=== PATIENT | female | born 1970 | race Caucasian/White ===

== ENCOUNTER 2025-04-30 04:28 | Inpatient (IN) | payer BC, SELFPAY ==
[2025-04-30] VITALS (34 sets, daily range): BP systolic 92–157; BP diastolic 64–93; PULSE 58–87; RESP 13–23; TEMP 36.3–36.6; O2SAT 93–100; BMI 30.9; BMI 32.5
[2025-04-30] MEDS: heparin drip 25,000 UNIT/500 ML PREMIX 20 UNIT IV (04:30)
--- NOTE | 2025-04-30 04:48 | ECG_ITS ---
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 Measurements Intervals [place] Rate: 73 P: 41 IA: 138 QRS: 21 QRSD: 82 T: 52 QT: 398 QTc: 441 Interpretive Statements SINUS RHYTHM LOW QRS VOLTAGE IN PRECORDIAL LEADS [QRS DEFLECTION < 1.0 mV IN CHEST LEADS] NONSPECIFIC T-WAVE ABNORMALITY No previous ECG available for comparison Electronically Signed On 04-30-2025 14:06:36 CDT by Shayan Raines M.D. [email or web address]
--- NOTE | 2025-04-30 04:53 | XRR_ITS ---
PROCEDURE INFORMATION: Exam: XR Chest Exam date and time: 04/30/2025 5:10 AM Age: 54 years old Clinical indication: Pain; Chest pressure and left-sided; Additional info: Chest pain TECHNIQUE: Imaging protocol: Radiologic exam of the chest. Views: 1 view. COMPARISON: No relevant prior studies available. FINDINGS: Lungs: Calcified granuloma within right upper lobe. Negative for consolidation. Pleural spaces: Unremarkable. No pleural effusion. No pneumothorax. Heart/Mediastinum: Unremarkable. No cardiomegaly. Bones/joints: Unremarkable. XR/XR chest 1V portable [id number] IMPRESSION: Negative for acute chest pathology.
[2025-04-30 05:06] LABS: Hematocrit 42.0 % (36-47); Hemoglobin 13.70 g/dL (11.27-16.99); Mean Corpuscular HGB Conc 32.6 g/dL (30-55); Mean Corpuscular Hemoglobin 30.7 pg (27-33); Mean Corpuscular Volume 94.2 fl (85-98); Nucleated Red Blood Cells % 0 %; Platelet Count 273 10^3/cmm (157-399); Red Blood Count 4.46 10^6/uL (3.85-5.65); White Blood Count 14.38 10^3/uL (3.29-11.43)
--- NOTE | 2025-04-30 05:26 | ED_ITS ---
HPI - Chest Pain 2 General: Chief Complaint: Chest Pain Stated Complaint: STEMI Time Seen by Provider: 04/30/25 04:28 History of Present Illness: Adult female with Hx of asthma was well until she awoke at ?01:45 to use the bathroom and soon noted pressure-like chest pain that escalated to 10/10. EMS was activated. En route from [facility] she had ST-segment elevation that progressively decreased, consistent with reperfusion. Episodes of bradycardia to the 20s and hypotension to the 80s/50s occurred; she received a 250 mL IV fluid bolus, atropine, and additional fluids with improvement. No morphine was given because of low BP. Prior to arrival she chewed aspirin and took four nitroglycerin tablets. Pain is now minimal and non-reproducible; denies new SOB beyond baseline asthma but notes mild wheeze. She reports this is her first myocardial infarction. ROS otherwise negative. Physical Exam 2 Const: COMMON NORMALS: no acute distress, patient oriented x3 and alert HENMT: COMMON NORMALS: normocephalic and atraumatic HEAD & SCALP: n ormocephalic and atraumatic Eye: COMMON NORMALS: Equal, round and reactive pupils present, EOMs intact bilaterally and no scleral icterus PUPIL: Yes Equal, round and reactive pupils present Chest: OTHER: Chest pain is not reproducible with palpation or deep inspiration Resp: COMMON NORMALS: normal respiratory effort and No retractions Cardio: COMMON NORMALS: regular rate, regular rhythm and No murmurs present (Cardio) RATE: regular rate RHYTHM: regular rhythm GI: COMMON NORMALS: Normal to inspection, nondistended, normoactive bowel sounds present, Soft to palpation and non-tender PALPATION: Yes Soft to palpation Neuro: COMMON NORMALS: patient oriented x3 SENSORIUM/ORIENTATION: Yes alert Skin: COMMON NORMALS: no rashes or lesions noted GENERAL SKIN EXAM: no rashes or lesions noted Course 2 Vital Signs: Vital signs: Vital Signs Temperature 97.4 F L 04/30/25 04:38 Pulse Rate 73 04/30/25 04:38 Respiratory Rate 23 H 04/30/25 04:38 Blood Pressure 143/80 04/30/25 04:38 Pulse Oximetry 99 04/30/25 04:38 MDM - Chest Pain Medical Decision Making The patient presents with sudden onset severe chest pressure during sleep. Initial EKG at outside facility showed profound ST segment elevation in the inferior leads consistent with myocardial infarction. She received TNKase, nitroglycerin, aspirin, and now pain is 1 of 10 and repeat EKG here at our facility shows the resolved ST segments with no T wave inversions. I spoke with on-call interventional cardiology who recommends admission to the intensive care unit and he will catheterize the patient at 7 AM. Spoke with the hospitalist service who graciously agrees to admit the patient to the ICU to continue this plan of care. Lab Data 04/30/25 05:00 04/30/25 05:00 Laboratory Results WBC 14.38 10^3/uL (3.29-11.43) H 04/30/25 05:00 RBC 4.46 10^6/uL (3.85-5.65) 04/30/25 05:00 Hgb 13.70 g/dL (11.27-16.99) 04/30/25 05:00 Hct 42.0 % (36-47) 04/30/25 05:00 MCV 94.2 fl (85-98) 04/30/25 05:00 MCH 30.7 pg (27-33) 04/30/25 05:00 MCHC 32.6 g/dL (30-55) 04/30/25 05:00 RDW 12.4 % (12.1-15.1) 04/30/25 05:00 Plt Count 273 10^3/cmm (157-399) 04/30/25 05:00 MPV 11.2 fL (7.4-10.4) H 04/30/25 05:00 Neut % (Auto) 82.0 % 04/30/25 05:00 Lymph % (Auto) 9.8 % 04/30/25 05:00 [place] % (Auto) 5.9 % 04/30/25 05:00 Eos % (Auto) 0.9 % 04/30/25 05:00 Baso % (Auto) 0.9 % 04/30/25 05:00 Neut # (Auto) 11.79 10^3/uL (1.8-7.7) H 04/30/25 05:00 Lymph # (Auto) 1.4 10^3/uL (0.8-4.8) 04/30/25 05:00 [place] # (Auto) 0.9 10^3/uL (0.2-0.9) 04/30/25 05:00 Eos # (Auto) 0.1 10^3/uL (0.0-0.8) 04/30/25 05:00 Baso # (Auto) 0.1 10^3/uL (0.0-0.1) 04/30/25 05:00 Nucleated RBC % (auto) 0 % 04/30/25 05:00 Nucleated RBCs # 0.0 /100WBC 04/30/25 05:00 All radiology interpretation(s) finalized by discharge EKG Data EKG 1: Interpretation: Time?441?sinus rhythm, rate of 73, no ST segment elevation or depression, no T wave inversions, QTc = 425 Discharge Plan Discharge Patient Disposition: Admitted As Inpatient Clinical Impression: ST elevation myocardial infarction (STEMI) Condition: Serious Coding Level of Care Code ED Service Desk Specialist for Roberto Boogie
[2025-04-30 05:28] LABS: Alanine Aminotransferase 19 U/L (0-33); Albumin Level 4.2 g/dL (3.5-5.2); Alkaline Phosphatase 146 U/L (35-105); Anion Gap 14.4 (5-19); Aspartate Amino Transferase 19 U/L (0-32); Blood Urea Nitrogen 20 mg/dL (6-20); Calcium 9.1 mg/dL (8.5-10.5); Carbon Dioxide 25 mmol/L (22-29); Chloride 106 mmol/L (98-107); Creatinine Clr Calc Pharmacy 73.0068; Globulin 2.8 g/dL (1.3-4.6); Glucose 129 mg/dL (65-115); Osmolality Calculated 296 mOsm/kg (285-295); Potassium 4.4 mmol/L (3.5-5.1); Sodium 141 mmol/L (136-145); Total Protein 7.0 g/dL (6.6-8.7)
[2025-04-30 05:31] LABS: Troponin(5th) Baseline 152 ng/L (0-10)
--- NOTE | 2025-04-30 06:10 | USCV_ITS ---
Connie Nguyen Age: 54 Gender: F : 1970 Exam Date: 04/30/2025 13:05 Ordering Phys: Juan Shirley MD Technologist: DARYL [place] [facility] [place]: STEMI BP: 130 / 85 HR: 58 Rhythm: Sinus Technical Quality: Adequate MEASUREMENTS (Male / Female) Normal Values 2D ECHO LVOT Diameter 2.1 cm LV Ejection Fraction MOD 4C 52.9 % LV Ejection Fraction MOD 2C 52.2 % LV Ejection Fraction 2C AL 53.6 % LA Diameter 2.9 cm RA Systolic Volume 4C AL 30.6 ml RA Systolic Volume 4C MOD 29.3 ml LA Sys Volume AL 42.2 cm cubed LA Sys Volume Index AL 21.1 cm cubed/m squared Aorta at Sinotubular Diameter 2.7 cm IVC Diameter 1.7 cm M-MODE LA Ao Ratio MM 1.5 AV Cusp Separation MM 1.6 cm DOPPLER AV Peak Velocity 132.0 cm/s LVOT Peak Velocity 82.0 cm/s AV Area Cont Eq vti 2.2 cm squared AV Area Cont Eq pk 2.1 cm squared MV Peak Velocity 84.0 cm/s MV Area PHT 2.4 cm squared Mitral E to A Ratio 0.7 TR Peak Velocity 82.0 cm/s TR Peak Gradient 2.7 mmHg TV Peak E Velocity 72.0 cm/s PV Peak Velocity 85.0 cm/s FINDINGS Left Ventricle Normal LV size with borderline low ejection fraction of 52%. Mild hypokinesis of the mid and apical septal segment. Right Ventricle The right ventricle is normal in size and function. Right Atrium The right atrium is normal in size. Left Atrium The left atrium is normal in size. Mitral Valve No gross abnormalities noted Aortic Valve No gross abnormalities noted Tricuspid Valve No gross abnormalities noted Pulmonic Valve Pulmonic valve not well visualized. Pericardium Normal pericardium without effusion. Aorta Normal ascending aorta dimension. IVC Normal inferior vena cava. CONCLUSIONS Normal LV size with borderline low ejection fraction of 52%. Mild hypokinesis of the mid and apical septal segment. No significant valvular abnormalities Normal chamber sizes. There is no pericardial effusion. There are no intracardiac masses. No similar previous studies are available for comparison Dr Shayan Raines MD [facility] (Electronically Signed) Final Date: 30 April 2025 15:44 S
--- NOTE | 2025-04-30 06:10 | PM.HP ---
Providers/Chief Complaint Admitting Physician: Juan Shirley MD Chief Complaint: STEMI History of Present Illness Connie Nguyen is a 54 year old female who has a past medical history of asthma, current smoker, who presents from [facility] for chest pain and STEMI. Currently patient is alert oriented x 3, following all commands, no active chest pain, on heparin drip, her last meal was at 6 PM on 04/29/2025, at bedside. According to patient, she woke up about 1:45 AM to use the bathroom, when she started experiencing severe substernal pressure-like chest pain, which persisted when she came back to bed, increased with exertion, she presented to [facility] found to have STEMI inferior wall, at [facility] she received aspirin, nitroglycerin, TNKase, and transferred here to [facility]. In addition she was found to have bradycardia heart rates into the 20s, and blood pressures 80s over 50s, currently she is normotensive blood pressure 136/90, pulse of 68, EKG according to ER provider shows resolved ST segments, I spoke to cardiology, they plan on taking patient to cardiac Forest Fire Management Officer at 7 AM Review of Systems Card: Reports: chest pain Medications/Allergies Allergies Allergy/AdvReac Type Severity Reaction Status Date / Time No Known Allergies Allergy Verified 04/30/25 06:12 PFSH Acute PFSH: Medical History (Updated 04/30/25 @ 06:13 by Juan Shirley MD) History of asthma Surgical History (Updated 04/30/25 @ 06:13 by Juan Shirley MD) History of hysterectomy History of cholecystectomy Social History (Updated 04/30/25 @ 06:14 by Juan Shirley MD) Smoking and tobacco/nicotine status: current every day tobacco/nicotine user Alcohol intake: never Substance/Drug Use: never Vitals/I&O/Wt Last Vital Signs Temp 97.4 F L 04/30/25 04:38 Pulse 68 04/30/25 05:08 Resp 16 04/30/25 05:30 BP 136/90 04/30/25 05:30 Pulse Ox 100 04/30/25 05:30 O2 Del Method Room Air 04/30/25 05:30 04/29/25 04/29/25 04/30/25 14:59 22:59 06:59 Intake Total 0 / 0 Balance 0 / 0 Weight last 48 hrs Weight 81.647 kg Physical Exam Const: COMMON NORMALS: no acute distress and patient oriented x3 HENMT: COMMON NORMALS: normocephalic HEAD & SCALP: normocephalic Neck/C-Spine: COMMON NORMALS: no JVD Resp: COMMON NORMALS: normal respiratory effort, No retractions, No use of accessory muscles and clear to auscultation bilaterally AUSCULTATION: clear to auscultation bilaterally Cardio: COMMON NORMALS: no JVD, regular rate, regular rhythm, S1 normal heart sound present and S2 normal heart sound present RATE: regular rate RHYTHM: regular rhythm HEART SOUNDS: S1 normal heart sound present and S2 normal heart sound present GI: COMMON NORMALS: Normal to inspection, nondistended, normoactive bowel sounds present, Soft to palpation and non-tender Extremity: COMMON NORMALS: no calf tenderness and no pedal edema Neuro: COMMON NORMALS: patient oriented x3, CN's II-XII intact bilaterally and moves all extremities Psych: COMMON NORMALS: mental status grossly normal Data 04/30/25 05:00 04/30/25 05:00 A&P Assessment and plan 1. ST elevation myocardial infarction (STEMI): Plan: ST elevation myocardial infarction -Status post TNKase at [facility] Plan - Currently on heparin drip - Aspirin, statin - Cardiac echo - N.p.o., plan on coronary angiogram this morning - Full code - Lovenox for DVT prophylaxis History of asthma PDMP PDMP Reviewed: Not Reviewed Attestations Medical Necessity Statement*: Patient requires hospitalization, for STEMI, inpatient, greater than [address] elevation myocardial infarction (STEMI) I21.3
--- NOTE | 2025-04-30 06:21 | XACV_ITS ---
Exam Room: [facility] Ht: 163 cm Wt: 82 kg BSA: 1.95 m2 Gender: Female : 1970 Any Known Allergies: No known allergies Exam Priority: Routine Procedure(s): Procedure Description: Diagnostic procedure Procedure Description: PCI procedure Procedure Description: Coronary IVUS Procedure Description: Drug Eluting Coronary Stent Procedure Description: PTCA Procedure Description: Miscellaneous Procedure Description: ACT Procedure Description: Coronary Angiography Diagnostic Cath Status: Urgent Diagnostic Findings * INDICATION: Inferior STEMI S/p TNKase administration. * Left Main has no significant disease. * Left Anterior Descending has moderate 50-60% stenosis. * Circumflex has mild to moderate diffuse disease. * Mid Right Coronary Artery: obstructive 70% stenosis, CALLY: 3 flow. Plaque rupture confirmed on IVUS. * Posterior Descending Right: ostial significant 80% stenosis, CALLY: 3 flow. * Coronary angiography shows right dominance. PCI Status: Urgent PCI Indication: STEMI (after successful lytics) Interventional Findings * Procedure detail: We engaged RCA with JR4 guide catheter. Run-through wire was used to cross the stenosis and was put in PDA. We performed IVUS and sized the vessel. It also showed plaque rupture. We placed 4.0 x 30 mm resolute [place] drug-eluting stent in mid RCA. This was followed by balloon angioplasty of ostial PDA with 2.5x15 mm semicompliant balloon. At this time, final angiogram was performed that showed excellent stent expansion and CALLY 3 flow. Patient left the denture laboratory technician in a stable condition. . * Mid Right Coronary Artery: 70% stenosis treated with a 4.0x30mm Resolute Jose. 0% residual stenosis, ACLLY: 3 flow. * Posterior Descending Right: 80% stenosis treated with a AB TREK 2.50X15 RX BALLOON. 0% residual stenosis, CALLY: 3 flow. Conclusions 1. Severe mid RCA stenosis with plaque rupture. Culprit vessel for STEMI S/p PCI with 1 stent. Severe PDA stenosis s/p balloon angioplasty. 2. Moderate mid LAD stenosis. Can perform stress test as outpatient to assess need for LAD PCI. 3. Mid Right Coronary Artery was treated with a Stent. 4. Posterior Descending Right was treated with a Balloon. Recommendations * Dual antiplatelet therapy with aspirin and plavix for atleast 1 year. * High intensity statin therapy. * Outpatient cardiology follow up in 2-4 weeks. * Patient will need stress test as outpatient to assess ischemia and need of intervention for mid LAD. Interventional RX Recommendation: PCI w/o planned CABG Diagnostic RX Recommendation: PCI w/o planned CABG Anticoagulation: Heparin Pressures Phase:Rest AO : 125 / 93 ( 110 ) @ 9:46:00 AM 124 / 97 ( 109 ) @ 9:47:00 AM 121 / 90 ( 107 ) @ 9:47:00 AM Clinical Evaluation EBL: 5mL-10mL Procedural Details Procedure Consent Obtained. Pre-Procedure Time Out. Identified patient by full name and date of as verbalized by the patient/guarantor. Does the consent match the physician's order: Yes. Accurate & Complete Informed Consent: Yes. Inpatient/Outpatient History & Physical on Chart: Yes. If H&P is completed, is and addenduem needed: No; If yes, is the addendum complete: N/A. Visualize and Verify Site with Patient/Guarantor: N/A. Relevant Radiology Images available: Yes. Pre-op teaching completed and patient verbalized understanding. The risks, benefits, and alternatives of sedation and/or procedure were discussed by physician. The patient agrees to continue. Procedure started. Physician arrived. Current Diagnosis : NSTEMI. [facility] Clinical Fraility Score: 3: Managing Well. Center Director Lead Teacher Indications: ACS > 24 hours. Chest Pain Symptom Assessment: Typical Angina Symptoms. Correct patient, site and procedure confirmed by cath team. Current diagnosis: NSTEMI. PERRLA. Strong, equal hand vocational nursing instructor bilaterally. Lungs clear x 5 lobes. IV Site on Arrival: 20 gauge in the right anticubital. IV Site on Arrival: 20 gauge in the left anticubital. IV Fluids: 0.9% NaCl at KVO. 0 mL infused prior to denture laboratory technician. Oxygen started at 2liters/min via nasal canula. right groin was prepped with chloroprep then draped in the usual sterile fashion. right radial was prepped with chloroprep then draped in the usual sterile fashion. Baseline sample Acquired. HR: 67 BPM. Physician scrubbed in. Immediate Pre-Procedure Time Out. Correct Patient: Yes; Correct Procedure: Yes; Correct Site: Yes; Correct Patient Position: Yes; Correct Supplies: Yes; Dried Flammable Prep: Yes; Blood Products Available: N/A;. Ultrasound being used to obtain access. Lidocaine 1% infiltrated to the right radial. Arterial access obtained. Lidocaine 1% infiltrated to the right radial. A 5 canadian TIG catheter in over wire. Multiple views taken of left coronary artery. Catheter redirected to the RCA. Multiple views taken of right coronary artery. Catheter removed over the exchange wire. ACT drawn. Results 250 seconds. Therapeutic limits - pre-heparin administration 90-150 seconds and monitoring heparin during a vascular procedure >250 seconds. 6 canadian JR 4 guide catheter was inserted over the wire. Runthrough guidewire was advanced through the guide catheter to lesion in the mid RCA. IVUS catheter inserted OTW and advanced to the RCA. IVUS measurements obtained. IVUS catheter out OTW. Inflation Number : 1 A 4.0x30mm Resolute [place] -Lot Number# _[id number] EXP: 05/06/2027 was prepped and advanced across the Mid RCA. The stent was deployed at 12 BRIAN for 0:21 seconds. Stent balloon out over wire. IVUS catheter inserted OTW and advanced to the RCA. IVUS measurements obtained. IVUS catheter out OTW. Inflation number : 1 A AB TREK 2.50X15 RX BALLOON was prepped and advanced across the R PDA , then inflated to 10 BRIAN for 0:17 seconds. Inflation number: 2 The AB TREK 2.50X15 RX BALLOON was reinflated across the R PDA, to 10 BRIAN for 0:15 seconds. Balloon out. Results checked. Wire out. Results checked. Guide catheter out. ACT drawn. Results out of range high seconds. Therapeutic limits - pre-heparin administration 90-150 seconds and monitoring heparin during a vascular procedure >250 seconds. Physician scrubbed out. Vital chart was stopped. A TR Band was successful obtaining hemostatsis at the Right Radial artery insertion site. Post Procedure: Pulses reassessed and unchanged. PERRLA. Strong, equal hand vocational nursing instructor bilaterally. No VTE prophylaxis required. Medication's Wasted: Lidocaine 1% = 18 mL. Medication's Wasted: Other = Fentanyl 25mcg Versed 1 mg. Total IV fluids: 55 mL. Post-op diagnosis: Stent to RCA. Complications: None. Estimated blood loss: 5mL-10mL. Responsiveness - Normal response to verbal stimuli; alert and oriented, PERRLA. Airway - Unaffected, no intervention required; spontaneous ventilation. Circulation: W/N/L, pulses unchanged. Nausea/Vomiting: No. Procedure completed. Patient transferred by bed to ICU. Access Site Site: Right Radial artery Sheath Size: 6 Fr Hemostasis Method: TR Band Hemostasis Success: Successful Procedure Medications Start: 8:33 AM Stop: 8:33 AM Medication: Versed 1 mg and Fentanyl 25 mcg Amount: 1 Route: I.V. Start: 8:33 AM Stop: 8:33 AM Medication: Benadryl Amount: 25 mg Route: I.V. Start: 8:42 AM Stop: 8:42 AM Medication: Nitrogylcerin Amount: 200 mcg Route: I.A. Start: 8:45 AM Stop: 8:45 AM Medication: Heparin Amount: 2500 units Route: I.V. Start: 8:51 AM Stop: 8:51 AM Medication: Heparin Amount: 3000 units Route: I.V. Start: 9:02 AM Stop: 9:02 AM Medication: Fentanyl Amount: 25 mcg Route: I.V. Start: 9:15 AM Stop: 9:15 AM Medication: Plavix Amount: 75 mg Route: P.O. I, the attending physician, have reviewed and verified all procedure medications. Yes, all medications given per verbal order History/Risk Factors Hypertension: No Dyslipidemia: No Peripheral Arterial Disease (PAD): No Myocardial Infarction (ME): No Obesity: No Renal Disease: No Tobacco Use: Current/Recent(w/in 1 year) Prior Interventions PCI: No CABG: No Valve Surgery: No Report Signatures Finalized by Manuel Espinoza MD on 05/05/2025 12:11 PM
[2025-04-30 07:30] LABS: Troponin 5 2HR 504.4 ng/L (0-10); Troponin 5 2HR Delta 352.4 ABS# (0-10)
[2025-04-30 07:31] LABS: Estmated Average Glucose 97; Hemoglobin A1C 5.0 % (4.0-6.0)
--- NOTE | 2025-04-30 07:35 | PC.NURSE ---
Dr Cox came to bedside, advised patient to go to farm labor contractor this morning and to keep heparin drip running. label machine operator called notified this nurse of vo for 1x po 81 mg aspirin now from Dr Cox
[2025-04-30 07:38] LABS: Cholesterol 228 mg/dL (0-200); HDL Cholesterol 39 mg/dL (60-100); NT Pro B Type Natriuretic Pept 135 pg/mL (0-125); Thyroid Stimulating Hormone 5.16 uIU/mL (0.27-4.20); Triglycerides 162 mg/dL (0-150)
--- NOTE | 2025-04-30 08:25 | PC.NURSE ---
off unit with recyclable products sorter at this time
--- NOTE | 2025-04-30 08:26 | P.CONIM_ITS ---
Providers/Reason For Consult 2 Consulting Physician/Specialty*: Manuel Espinoza MD/ Interventional cardiology Reason for Consult*: STEMI post TNKase administration Requesting Physician: Dr Monroy Attending Physician: Andres Monroy MD History of Present Illness History of Present Illness Connie Nguyen is a 54 year old female with no prior cardiac history who presented to [facility] last night with severe substernal chest pain. She was found to have inferior wall ST elevation NH. She had TNKase administration. Had loading dose of aspirin, Plavix. She was transferred to our hospital because of PCI capability. Her EKG changes have resolved. Currently chest pain-free. Hemodynamically she is stable. Review of Systems 2 Card: Reports: chest pain Medications/Allergies Allergies Allergy/AdvReac Type Severity Reaction Status Date / Time No Known Allergies Allergy Verified 04/30/25 06:12 Current Medications Generic Name Dose Route Start Last Admin Trade Name Freq PRN Reason Stop Dose Admin Heparin Sodium/Sodium Chloride 25,000 unit in 500 mls @ 19.595 mls/hr 04/30/25 06:15 04/30/25 04:30 Heparin Drip IV 12.25 unit/kg/hr .Q24H DEEP 20 mls/hr 12 UNIT/KG/HR Administration Pantoprazole Sodium 40 mg 04/30/25 06:27 04/30/25 07:35 Pantoprazole 40 Mg Sdv IVP Not Given Q24H DEEP PFSH Acute 2 PFSH: Medical History History of asthma Surgical History History of hysterectomy History of cholecystectomy Social History Smoking and tobacco/nicotine status: current every day tobacco/nicotine user Alcohol intake: never Substance/Drug Use: never Vitals/I&O/Wt Last Vital Signs Temp 97.9 F 04/30/25 06:25 Pulse 68 04/30/25 08:15 Resp 15 04/30/25 08:15 BP 113/64 04/30/25 08:15 Pulse Ox 99 04/30/25 08:15 O2 Del Method Room Air 04/30/25 08:15 04/29/25 04/30/25 04/30/25 22:59 06:59 14:59 Intake Total 0 / 0 Balance 0 / 0 Weight last 48 hrs Weight 189 lb 9.561 oz Weight 180 lb Physical Exam 2 Narrative: GENERAL: Patient is alert, awake and oriented x3. [] NECK: No jugular vein distension. [] HEENT: No cyanosis. No icterus. No pallor. [] HEART: Regular S1 and S2. No murmur, rub or gallop. [] LUNGS: Clear to auscultate bilaterally. [] CENTRAL NERVOUS SYSTEM: Grossly nonfocal. [] EXTREMITIES: Lower extremities with no edema bilaterally. Data 04/30/25 05:00 04/30/25 05:00 A&P Assessment and plan 1. ST elevation myocardial infarction (STEMI): Plan: Patient had fibrinolytic therapy for acute inferior wall ST elevation NH at outside hospital. Her chest pain and EKG changes have resolved. Plan for coronary angiogram with possible PCI today. Continue heparin gtt. Continue aspirin and Plavix. Obtain echocardiogram. Thank you for involving us with care of this patient. We will continue to follow. Please call with questions. PDMP PDMP Reviewed: Not Reviewed Consult Attestations 2 Medical Necessity Statement: Care expected to cross 2 midnights. Coding Level of Care Code Acute Code for [facility] Fwd Diagnoses ST elevation myocardial infarction (STEMI) I21.3
--- NOTE | 2025-04-30 08:31 | W.PM.OPSUD ---
Surgery/Procedure H&P Update DATE OF PROCEDURE: April 30, 2025 DATE H&P PERFORMED: 04/30/25 H&P UPDATE INFORMATION: I have reviewed H&P completed within last 30 days, I have examined patient prior to procedure and No changes to prior documentation PREOP DIAGNOSIS: STEMI s/p TNKase administration PRIMARY INDICATION FOR PROCEDURE: STEMI s/p TNKase administration PLANNED PROCEDURE: Left heart cath with Possible PCI PATIENT REASSESSED PRIOR TO SEDATION, WITH NO CHANGE NOTED: Yes PHYSICAL EXAM: alert, oriented x 3, clear to auscultation bilaterally and regular rate & rhythm AIRWAY EVAL/ANESTHESIA PLAN: normal airway, ASA III, Local Anesthesia, Risks, benefits & alternatives of sedation and/or procedure discussed and Patient agrees to continue as planned ADDITIONAL INFORMATION: Moderate sedation
--- NOTE | 2025-04-30 09:30 | PM.PROC ---
Procedure Note: Date of procedure: 04/30/25 Pre-procedure diagnosis: STEMI post TNKase administration Post-procedure diagnosis: other (Severe mid RCA stenosis with plaque rupture s/p PCI with 1 stent) Procedure: Severe mid RCA stenosis with plaque rupture confirmed on IVUS. Status post PCI with 1 stent. Severe PDA stenosis status post balloon angioplasty. Mid to distal LAD has moderate 50 to 60% stenosis. As outpatient will perform stress test to assess for ischemia and possible need for intervention. Dual antiplatelet therapy with aspirin and plavix High intensity statin therapy Obtain echocardiogram Performing Provider: Manuel Espinoza Complications: None Condition: stable Disposition: ICU Coding Level of Care Code Acute Code for Chg Fwd
--- NOTE | 2025-04-30 09:31 | PC.NURSE ---
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
[2025-04-30 09:37] LABS: Iron 89 ug/dL (37-145); Total Iron Binding Capacity 309 mcg/dl; Unsaturated Iron Binding 220 ug/dL (112-347)
[2025-04-30 09:51] LABS: Vitamin B12 745 pg/mL (232-1245)
[2025-04-30 10:47] LABS: Partial Thromboplastin Time 174.7 SECONDS (23.9-36.7); Troponin 5 6HR 820.6 ng/L (0-10); Troponin 5 6HR Delta 668.6 ng/L (0-12)
[2025-05-01] VITALS (14 sets, daily range): BP systolic 127–173; BP diastolic 66–98; PULSE 57–72; RESP 13–23; TEMP 36.6; O2SAT 94–98
[2025-05-01 03:54] LABS: Glucose Urine UA Negative (Normal); Nitrate Urine Negative (Negative); Specific Gravity, Urine 1.013 (1.005-1.030)
[2025-05-01 03:59] LABS: Add Urine Microscopic? YES
[2025-05-01 04:13] LABS: Hematocrit 40.9 % (36-47); Hemoglobin 12.60 g/dL (11.27-16.99); Mean Corpuscular HGB Conc 30.8 g/dL (30-55); Mean Corpuscular Hemoglobin 30.3 pg (27-33); Mean Corpuscular Volume 98.3 fl (85-98); Nucleated Red Blood Cells % 0 %; Platelet Count 237 10^3/cmm (157-399); Red Blood Count 4.16 10^6/uL (3.85-5.65); White Blood Count 8.79 10^3/uL (3.29-11.43)
[2025-05-01 04:36] LABS: Alanine Aminotransferase 23 U/L (0-33); Albumin Level 3.8 g/dL (3.5-5.2); Alkaline Phosphatase 146 U/L (35-105); Aspartate Amino Transferase 36 U/L (0-32); Blood Urea Nitrogen 10 mg/dL (6-20); Calcium 8.0 mg/dL (8.5-10.5); Carbon Dioxide 20 mmol/L (22-29); Chloride 110 mmol/L (98-107); Creatinine Clr Calc Pharmacy 112.4223; Globulin 2.1 g/dL (1.3-4.6); Glucose 99 mg/dL (65-115); Osmolality Calculated 293 mOsm/kg (285-295); Sodium 142 mmol/L (136-145); Total Protein 5.9 g/dL (6.6-8.7)
[2025-05-01 04:41] LABS: Anion Gap 16.5 (5-19); Potassium 4.5 mmol/L (3.5-5.1)
[2025-05-01 05:05] LABS: Magnesium 2.2 mg/dL (1.7-2.3)
[2025-05-01] MEDS: pantoprazole 40 mg SDV IVP (05:27)
--- NOTE | 2025-05-01 08:00 | P.PN_ITS ---
Subjective 2 Subjective: Patient doing well. No chest pain. Blood pressure is borderline elevated. Vitals/I&O/Wt Last Vital Signs Temp 97.8 F 04/30/25 16:43 Pulse 69 05/01/25 07:53 Resp 16 05/01/25 07:53 BP 142/80 05/01/25 05:00 Pulse Ox 97 05/01/25 07:53 O2 Del Method Room Air 05/01/25 07:53 04/30/25 05/01/25 05/01/25 22:59 06:59 14:59 Intake Total 1113.333 / 7991.286 4494 / 2113.333 Balance 1113.333 / 756.622 0412 / 1563.333 Weight last 48 hrs Weight 189 lb 9.561 oz Weight 180 lb Physical Exam 2 Narrative: GENERAL: Patient is alert, awake and oriented x3. [] NECK: No jugular vein distension. [] HEENT: No cyanosis. No icterus. No pallor. [] HEART: Regular S1 and S2. No murmur, rub or gallop. [] LUNGS: Clear to auscultate bilaterally. [] CENTRAL NERVOUS SYSTEM: Grossly nonfocal. [] EXTREMITIES: Lower extremities with no edema bilaterally. Data 05/01/25 03:09 05/01/25 03:09 A&P Assessment and plan 1. ST elevation myocardial infarction (STEMI): 2. Hypertension: 3. Tobacco abuse: Plan: Patient had TNKase and underwent culprit mid RCA lesion with 1 stent yesterday. Balloon angioplasty of PDA done. Has moderate disease of mid to distal LAD. As outpatient will perform stress test to assess for ischemia. Patient's EF is normal with mild hypokinesis of inferior wall on echocardiogram. Continue aspirin and Plavix. High intensity statin therapy and metoprolol. Patient can be discharged from cardiology standpoint. Smoking cessation recommended strongly Close follow-up with cardiology in 1 to 2 weeks. PDMP PDMP Reviewed: Not Reviewed Attestations 2 Medical Necessity Statement*: Care expected to cross 2 midnights. Coding Level of Care Code Acute Code for [facility] Fwd Diagnoses ST elevation myocardial infarction (STEMI) I21.3 Hypertension I10 Tobacco abuse Z72.0
[2025-05-01] MEDS: metoprolol succinate ER (24 HR) 25 mg Tablet PO (08:33)
--- NOTE | 2025-05-01 10:05 | PM.DCS ---
Discharge Providers Date of Admission: 04/30/25 05:41 Date of Discharge: May 01, 2025 Attending Provider at Admission: Juan Shirley MD Attending Provider at Discharge: Andres Monroy MD Diagnoses at Discharge Discharge Diagnosis 1. ST elevation myocardial infarction (STEMI): 2. Hypertension: 3. Tobacco abuse: Reason for Visit Reason for Visit: STEMI Hospital Course Hospital Course Connie Nguyen is a 54 year old female who has a past medical history of asthma, current smoker, who presents from [facility] for chest pain and STEMI. Currently patient is alert oriented x 3, following all commands, no active chest pain, on heparin drip, her last meal was at 6 PM on 04/29/2025, at bedside. According to patient, she woke up about 1:45 AM to use the bathroom, when she started experiencing severe substernal pressure-like chest pain, which persisted when she came back to bed, increased with exertion, she presented to [facility] found to have STEMI inferior wall, at [facility] she received aspirin, nitroglycerin, TNKase, and transferred here to [facility]. 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 Patient was admitted to the hospital further evaluation and management. Cardiology was consulted and she underwent cardiac angiogram on 04/30 and she underwent PCI to mid RCA and balloon angioplasty of PDA for severe stenosis. She was also found to have mid to distal LAD 50 to 60% stenosis for which she is to follow-up with cardiology as an outpatient for a possible cardiac stress test. Her hospitalization were otherwise unremarkable. She been discharged in medically stable condition on DAPT, statin, metoprolol with advised to follow-up with her PCP in 1 week and cardiology team in 10 days. Physical Exam Const: COMMON NORMALS: no acute distress and patient oriented x3 HENMT: COMMON NORMALS: normocephalic HEAD & SCALP: normocephalic Neck/C-Spine: COMMON NORMALS: no JVD Resp: COMMON NORMALS: normal respiratory effort, No retractions, No use of accessory muscles and clear to auscultation bilaterally AUSCULTATION: clear to auscultation bilaterally Cardio: COMMON NORMALS: no JVD, regular rate, regular rhythm, S1 normal heart sound present and S2 normal heart sound present RATE: regular rate RHYTHM: regular rhythm HEART SOUNDS: S1 normal heart sound present and S2 normal heart sound present GI: COMMON NORMALS: Normal to inspection, nondistended, normoactive bowel sounds present, Soft to palpation and non-tender PALPATION: Yes Soft to palpation Extremity: COMMON NORMALS: no calf tenderness and no pedal edema Neuro: COMMON NORMALS: patient oriented x3, CN's II-XII intact bilaterally and moves all extremities Psych: COMMON NORMALS: mental status grossly normal Discharge Data Studies Completed and Pending Completed Studies During Hospitalization Category Date Time Status XR chest 1V portable 71008 Stat Exams 04/30/25 04:53 Completed CV. 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 Laboratory Results WBC 8.79 10^3/uL (3.29-11.43) 05/01/25 03:09 RBC 4.16 10^6/uL (3.85-5.65) 05/01/25 03:09 Hgb 12.60 g/dL (11.27-16.99) 05/01/25 03:09 Hct 40.9 % (36-47) 05/01/25 03:09 MCV 98.3 fl (85-98) H 05/01/25 03:09 MCH 30.3 pg (27-33) 05/01/25 03:09 MCHC 30.8 g/dL (30-55) D 05/01/25 03:09 RDW 12.8 % (12.1-15.1) 05/01/25 03:09 Plt Count 237 10^3/cmm (157-399) 05/01/25 03:09 MPV 11.3 fL (7.4-10.4) H 05/01/25 03:09 Neut % (Auto) 69.8 % 05/01/25 03:09 Lymph % (Auto) 19.1 % 05/01/25 03:09 [place] % (Auto) 8.1 % 05/01/25 03:09 Eos % (Auto) 1.5 % 05/01/25 03:09 Baso % (Auto) 1.0 % 05/01/25 03:09 Neut # (Auto) 6.14 10^3/uL (1.8-7.7) 05/01/25 03:09 Lymph # (Auto) 1.7 10^3/uL (0.8-4.8) 05/01/25 03:09 [place] # (Auto) 0.7 10^3/uL (0.2-0.9) 05/01/25 03:09 Eos # (Auto) 0.1 10^3/uL (0.0-0.8) 05/01/25 03:09 Baso # (Auto) 0.1 10^3/uL (0.0-0.1) 05/01/25 03:09 Nucleated RBC % (auto) 0 % 05/01/25 03:09 Nucleated RBCs # 0.0 /100WBC 05/01/25 03:09 APTT 174.7 SECONDS (23.9-36.7) H* 04/30/25 10:08 Sodium 142 mmol/L (136-145) 05/01/25 03:09 Potassium 4.5 mmol/L (3.5-5.1) 05/01/25 03:09 Chloride 110 mmol/L (98-107) H 05/01/25 03:09 Carbon Dioxide 20 mmol/L (22-29) L 05/01/25 03:09 Anion Gap 16.5 (5-19) 05/01/25 03:09 BUN 10 mg/dL (6-20) 05/01/25 03:09 Creatinine 0.6 mg/dL (0.5-0.9) 05/01/25 03:09 GFR Calculation 103.8 mL/min (90-130) 05/01/25 03:09 Glucose 99 mg/dL (65-115) 05/01/25 03:09 Estimat Average Glucose 97 04/30/25 06:50 Hemoglobin A1c 5.0 % (4.0-6.0) 04/30/25 06:50 Calculated Osmolality 293 mOsm/kg (285-295) 05/01/25 03:09 Calcium 8.0 mg/dL (8.5-10.5) L 05/01/25 03:09 Magnesium 2.2 mg/dL (1.7-2.3) 05/01/25 03:09 Iron 89 ug/dL (37-145) 04/30/25 06:50 TIBC 309 mcg/dl 04/30/25 06:50 % Saturation 28.8 % (20-50) 04/30/25 06:50 Unsat Iron Binding 220 ug/dL (112-347) 04/30/25 06:50 Total Bilirubin 0.2 mg/dL (0.15-1.2) 05/01/25 03:09 AST 36 U/L (0-32) H 05/01/25 03:09 ALT 23 U/L (0-33) 05/01/25 03:09 Alkaline Phosphatase 146 U/L (35-105) H 05/01/25 03:09 Troponin T Baseline 152 ng/L (0-10) H* 04/30/25 05:00 Troponin T 120 Minute 504.4 ng/L (0-10) H 04/30/25 06:50 Delta Troponin T 352.4 ABS# (0-10) H* 04/30/25 06:50 Troponin T Hi Sens 6Hr 820.6 ng/L (0-10) H 04/30/25 10:08 Troponin T Hi Sens 6Hr Delta 668.6 ng/L (0-12) H* 04/30/25 10:08 NT-Pro-B Natriuret Pep 135 pg/mL (0-125) H 04/30/25 06:50 Total Protein 5.9 g/dL (6.6-8.7) L 05/01/25 03:09 Albumin 3.8 g/dL (3.5-5.2) 05/01/25 03:09 Globulin 2.1 g/dL (1.3-4.6) 05/01/25 03:09 Triglycerides 162 mg/dL (0-150) H 04/30/25 06:50 Cholesterol 228 mg/dL (0-200) H 04/30/25 06:50 LDL Cholesterol, Calc 157 mg/dL (50-129) H 04/30/25 06:50 HDL Cholesterol 39 mg/dL (60-100) L 04/30/25 06:50 LDL/HDL Ratio 4.03 RATIO (0.00-3.22) H 04/30/25 06:50 Cholesterol/HDL Ratio 5.85 mg/dL (0.0-4.40) H 04/30/25 06:50 Vitamin B12 745 pg/mL (232-1245) 04/30/25 06:50 Folate 8.2 ng/mL (4.8-37.3) 05/01/25 03:09 TSH 5.16 uIU/mL (0.27-4.20) H 04/30/25 06:50 Urine Color Yellow (Yellow) 05/01/25 03:20 Urine Appearance Clear (CLEAR) 05/01/25 03:20 Urine pH 5.5 (5-7) 05/01/25 03:20 Ur Specific [place] 1.013 (1.005-1.030) 05/01/25 03:20 Urine Protein Negative (Negative) 05/01/25 03:20 Urine Glucose (UA) Negative (Normal) 05/01/25 03:20 Urine Ketones Negative (Negative) 05/01/25 03:20 Urine Blood Negative (Negative) 05/01/25 03:20 Urine Nitrate Negative (Negative) 05/01/25 03:20 Urine Bilirubin Negative (Negative) 05/01/25 03:20 Urine Urobilinogen 0.2 mg/dL (Negative) 05/01/25 03:20 Ur Leukocyte Esterase Negative (Negative) 05/01/25 03:20 Urine RBC 0-2 /hpf (0-2) 05/01/25 03:20 Urine WBC 0-5 /hpf (0-5) 05/01/25 03:20 Ur Squamous Epith Cells 0-5 /hpf (0-5) 05/01/25 03:20 Amorphous Sediment Not Reportable 05/01/25 03:20 Urine Bacteria None seen /hpf (NONE) 05/01/25 03:20 Hyaline Casts 0.81 /lpf 05/01/25 03:20 Procedures Performed Date of procedure: 04/30/25 Pre-procedure diagnosis: STEMI post TNKase administration Post-procedure diagnosis: other (Severe mid RCA stenosis with plaque rupture s/p PCI with 1 stent) Procedure: Severe mid RCA stenosis with plaque rupture confirmed on IVUS. Status post PCI with 1 stent. Severe PDA stenosis status post balloon angioplasty. Mid to distal LAD has moderate 50 to 60% stenosis. As outpatient will perform stress test to assess for ischemia and possible need for intervention. Dual antiplatelet therapy with aspirin and plavix High intensity statin therapy Obtain echocardiogram Performing Provider: Manuel Espinoza Vitals Last Vital Signs Temp 97.8 F 04/30/25 16:43 Pulse 72 05/01/25 08:00 Resp 23 H 05/01/25 08:00 BP 173/83 05/01/25 07:00 Pulse Ox 97 05/01/25 07:53 O2 Del Method Room Air 05/01/25 07:53 Discharge Plan Discharge Patient Disposition: Home Condition: Stable Prescriptions: New atorvastatin 40 mg Tablet 40 mg PO BEDTIME Qty: 30 1RF clopidogrel 75 mg Tablet 75 mg PO DAILY Qty: 30 3RF aspirin 81 mg Tablet,Delayed Release (Dr/Ec) 81 mg PO DAILY Qty: 30 1RF metoprolol succinate 25 mg Tablet Extended Release 24 Hr 25 mg PO DAILY Qty: 30 1RF amlodipine 5 mg tablet 5 mg PO DAILY Qty: 30 0RF Discharge Order = DC NOW: Discharge Order (Routine); Ordered 05/01/25 Ordered By: Andres Monroy Referrals: Manuel Espinoza M.D [Physician, Cardiology] - 7-10 days Patient Instructions: Metoprolol (By mouth) (Lopressor, Toprol XL), Aspirin (By mouth) (Syed Extra Strength, Syed Aspirin Children's,..., Amlodipine (By mouth) (Hypertenipine-2.5, Norvasc, Norliqva), Atorvastatin (By mouth) (Lipitor, Atorvaliq), Clopidogrel (By mouth) (Plavix), Coronary Angioplasty (DC), Opioid Safety, Patient Portal & Zachary Instructions Activity Restrictions/Additional Instructions: Please calll Saturday to schedule a follow-up appointment with Dr. Espinoza in 7-10 days. [phone] Check your blood pressure daily at home maintain blood pressure diary. Goal blood pressure less than 140/90 mmHg. Continue taking your metoprolol as prescribed. If blood pressures are increasing more than 140 you can take amlodipine. Discharge Attestations Time Spent in Discharge Care*: greater than 30 min Specific Discharge Activities: educating patient, educating and/or supporting family/caregiver, discussing with pcp/other providers, discussing with case management specialist/social workers/dc planners, documenting/other paperwork and evaluating patient/reviewing data Status at Discharge: Cognitive status at discharge: cognitively intact, Behavioral status at discharge: cooperative, Functional status at discharge: independent ambulation, Overall status at discharge: patient is back to baseline Quality Metrics Clinical Quality Measures [ Acute Myocardial Infaction { Clinical Trial Participant: No; Contraindication to aspirin: None; Aspirin prescribed; Contraindication to statin: None; Statin prescribed; Contraindication to PCI: None; PCI performed; Contraindication to Fibrinolytics: None; fibrinolytics given}] Coding Level of Care Code 52550 Total time (in minutes) for Discharge: [address] elevation myocardial infarction (STEMI) I21.3 Hypertension I10 Tobacco abuse Z72.0
== END 2025-05-01 11:20 | disposition home or self-care (01) | DRG 322 ==
LOC: ER 05:25 → ICU 05:41
PROVIDERS: Internal Medicine; Admitting Provider Family Medicine; Emergency Provider Student in an Organized Health Care Education/Training Program; Visit Provider Student in an Organized Health Care Education/Training Program
PROC: 027034Z Dilation of Coronary Artery, One Artery with Drug-eluting Intraluminal Device, Percutaneous Approach (ICD-10-PCS; principal; 2025-04-30 08:30)
PROC: 027034Z Dilation of Coronary Artery, One Artery with Drug-eluting Intraluminal Device, Percutaneous Approach (ICD-10-PCS; 2025-04-30 08:30)
DX: I21.11 ST elevation (STEMI) myocardial infarction involving right coronary artery (principal); I10 Essential (primary) hypertension; F17.200 Nicotine dependence, unspecified, uncomplicated; Z92.82 Status post administration of tPA (rtPA) in a different facility within the last 24 hours prior to admission to current facility
CPT/HCPCS: 36415; 71045; 80053; 80061; 81001; 82607; 82746; 83036; 83540; 83550; 83735; 83880; 84443; 84484; 85025; 85347; 85730; 92921; 92978; 93005; 93306; 93454; 94640; 94664; 99152; 99153; 99285; C1725; C1753; C1769; C1874; C1887; C1894; C9600; J1200; J1644; J2250; J2470; J3010; J3490; J7030; J7611; J9999; Q9967

== ENCOUNTER 2025-06-03 08:04 | Outpatient (CLI) | payer BC, SELFPAY ==
[2025-06-03 08:38] VITALS: BMI 30.9
--- NOTE | 2025-06-03 08:39 | ECG_ITS ---
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 Interpretive Statements Procedure: The patient was exercised by the Kael protocol. Vital signs and ECG findings: Baseline blood pressure was 120/84 with a heart rate 75 bpm. The patient exercised for 7 minutes and 20 seconds which is an average exercise capacity for the patient's age. The patient reached a peak heart rate of 153 bpm which is 92% of maximal predicted heart rate achieving 10.2 METS. The maximum blood pressure reached was 192/42. The blood pressure in recovery was 126/81. The baseline EKG showed normal sinus rhythm. Mild ST depressions and nonspecific mild T wave inversions. There was no worsening of baseline ST-T wave abnormalities during stress or in recovery. CONCLUSION: 1. Exercise capacity for age was average for patient's age. 2. Heart rate response was appropriate. 3. Blood pressure response was appropriate. 4. No symptoms of ischemia during stress test. 5. Stress test without evidence of ischemia on EKG. Electronically Signed On 06-03-2025 20:12:44 CDT by Grzegorz Regan M.D. [email or web address]
--- NOTE | 2025-06-03 08:39 | NMCV_ITS ---
NM elsa perf SPECT r/s* [id number] Connie Nguyen Age: 54 Gender: F : 1970 Exam Date: 06/03/2025 09:29 Ordering Phys: Grzegorz Regan MD ([email or web address]) Technologist: CARROLL Yadav Exam Location: [facility] Indications: CP STRESS TEST Please see separate stress test report in [facility] for full findings IMAGE PROTOCOL Rest/Stress 1 Exercise Day Radiopharmaceutical Dose (mCi) Administration Site Administered by Rest: Tc-99m 10.4 IV CARROLL Yadav Sestamibi Stress:Tc-99m 32.8 IV CARROLL Johnson Sestamibi Rest: 03-Jun-2025 60 Discovery 630 Stress: 03-Jun-2025 15 Discovery 630 Radiopharmaceutical was injected at 87 % maximum heart rate. Images obtained in supine and prone position. SPECT RESULTS Technical Quality: Good Raw Data Analysis: Normal Image Corrections: No attenuation or motion correction applied Summed Stress Score: 1 Summed Rest Score: 2 Summed Difference Score: 0 PERFUSION FINDINGS Small moderately severe fixed defect in the apical inferior wall segment. FUNCTIONAL RESULTS (calculated via Gated SPECT) Stress Image LV EF (%): 74 Stress EDV (mL):78 TID: 0.84 Stress ESV (mL):20 FUNCTIONAL FINDINGS: There is normal left ventricular systolic function. IMPRESSIONS Perfusion pattern consistent with a small apical inferior wall segment infarction versus normal apical thinning. Normal left ventricular systolic function, EF 74%. Grzegorz Regan MD, FACC (Electronically Signed) Final Date: 03 June 2025 19:37 S
[2025-06-03 10:14] VITALS: BP 130/62; PULSE 82
== END 2025-06-03 08:05 | disposition home or self-care (01) ==
PROVIDERS: PCP Registered Nurse; Visit Provider Internal Medicine Cardiovascular Disease
DX: R07.9 Chest pain, unspecified (principal)
CPT/HCPCS: 36415; 78452; 93017; A9500